=== PATIENT | female | born 1970 | race Asian ===

== ENCOUNTER 2017-01-16 10:08 | Emergency (ER) | payer OTHER ==
[~2017-01-16] VITALS: Ht 162.6 cm; Wt 149.7 kg
[~2017-01-16 10:08] MED LIST: ADIPEX PO; HYDR25TA60 PO
[2017-01-16] MEDS ORDERED: FLECAINIDE100 MG PO (10:37)
[2017-01-16] MEDS ORDERED: ALBU90AE13 INH (10:38)
[2017-01-16] MEDS ORDERED: METOPROLOL25 M1 OR (10:38)
[2017-01-16] MEDS ORDERED: MOBIC15 MG PO (10:38)
[2017-01-16] MEDS ORDERED: BENZONATATE100 MG PO (10:39)
[2017-01-16] MEDS ORDERED: [UNRECOGNIZED DRUG - REMARK] PO (10:40)
[2017-01-16 12:27] VITALS: BP 135/83; TEMP 98
== END 2017-01-16 12:28 | disposition home or self-care (01) ==
LOC: ED 10:08
DX: R00.2 Palpitations (principal); I48.91 Unspecified atrial fibrillation
CPT/HCPCS: 36415; 93005; 96374; 99284; J3490

== ENCOUNTER 2019-04-20 13:35 | Outpatient (CLI) | payer OTHER ==
[~2019-04-20 13:35] MED LIST changes: +ALBU90AE13 INH; +BENZONATATE100 MG PO; +FLECAINIDE100 MG PO; +METOPROLOL25 M1 OR; +MOBIC15 MG PO; +[UNRECOGNIZED DRUG - REMARK] PO
== END 2019-04-20 23:59 ==
LOC: RESP 13:35
DX: R00.2 Palpitations (principal); R07.9 Chest pain, unspecified
CPT/HCPCS: 93306

== ENCOUNTER 2019-08-02 10:03 | Outpatient (CLI) | payer OTHER | END 2019-08-02 20:19 | disposition home or self-care (01) | LOC: RESP 10:03 | DX: I47.1 Supraventricular tachycardia (principal); R07.9 Chest pain, unspecified; R00.2 Palpitations ==

== ENCOUNTER 2019-08-18 12:43 | Outpatient (CLI) | payer OTHER | END 2019-08-18 19:32 | disposition home or self-care (01) | LOC: US 12:43 | DX: N94.6 Dysmenorrhea, unspecified (principal) ==

== ENCOUNTER 2021-05-25 10:52 | Outpatient (CLI) | payer OTHER | END 2021-05-25 23:00 | disposition home or self-care (01) | LOC: LABW 10:52 | PROVIDERS: ATTEND Family Medicine | DX: Z20.822 Contact with and (suspected) exposure to COVID-19 (principal) | CPT/HCPCS: 36415; 82728; 85379; 86140 ==

== ENCOUNTER 2021-05-27 11:53 | Outpatient (CLI) | payer OTHER | END 2021-05-27 20:06 | disposition home or self-care (01) | LOC: RAD 11:53 | PROVIDERS: ATTEND Nurse Practitioner Family | DX: J20.8 Acute bronchitis due to other specified organisms (principal) ==

== ENCOUNTER 2021-06-02 17:09 | Emergency (ER) | payer OTHER ==
[~2021-06-02] VITALS: Ht 162.6 cm; Wt 145.2 kg
[2021-06-02 17:14] VITALS: TEMP 98.8
[2021-06-02 18:20] VITALS: BP 159/81
== END 2021-06-02 18:20 | disposition home or self-care (01) ==
LOC: ED 17:09
DX: S92.515A Nondisplaced fracture of proximal phalanx of left lesser toe(s), initial encounter for closed fracture (principal); X58.XXXA Exposure to other specified factors, initial encounter; Y92.89 Other specified places as the place of occurrence of the external cause
CPT/HCPCS: 96372; 99283; J1885

== ENCOUNTER 2021-07-18 12:36 | Outpatient (CLI) | payer OTHER | END 2021-07-18 19:21 | disposition home or self-care (01) | LOC: RAD 12:36 | PROVIDERS: ATTEND Physician Assistant | DX: M25.561 Pain in right knee (principal) ==

== ENCOUNTER 2021-08-14 10:41 | Outpatient (CLI) | payer OTHER | END 2021-08-14 20:20 | disposition home or self-care (01) | LOC: RAD 10:41 | PROVIDERS: ATTEND Nurse Practitioner Family | DX: M79.672 Pain in left foot (principal) ==

== ENCOUNTER 2021-12-19 12:18 | Outpatient (CLI) | payer OTHER | END 2021-12-19 19:11 | disposition home or self-care (01) | LOC: US 12:18 | PROVIDERS: ATTEND Nurse Practitioner Family | DX: E04.1 Nontoxic single thyroid nodule (principal); Z13.820 Encounter for screening for osteoporosis ==

== ENCOUNTER 2021-12-24 12:18 | Outpatient (CLI) | payer OTHER | END 2021-12-24 19:46 | disposition home or self-care (01) | LOC: RAD 12:18 | PROVIDERS: ATTEND Nurse Practitioner Family | DX: M54.17 Radiculopathy, lumbosacral region (principal) ==

== ENCOUNTER 2022-08-11 10:37 | Outpatient (CLI) | payer OTHER | END 2022-08-11 20:22 | disposition home or self-care (01) | LOC: RAD 10:37 | PROVIDERS: ATTEND Nurse Practitioner Family | DX: M54.12 Radiculopathy, cervical region (principal) ==

== ENCOUNTER 2023-02-25 11:55 | Outpatient (CLI) | payer OTHER ==
[2023-02-25 12:18] LABS: POTASSIUM 4.6 mmol/L (3.6-5.2)
[2023-02-25 12:30] LABS: PLATELET COUNT 308 K/uL (152-353)
== END 2023-02-25 20:09 | disposition home or self-care (01) ==
LOC: LABW 11:55
PROVIDERS: ATTEND Nurse Practitioner Family
DX: R10.12 Left upper quadrant pain (principal)
CPT/HCPCS: 36415; 80053; 82150; 83690; 85027